=== PATIENT | female | born 1935 | race Hispanic/Latino ===

== ENCOUNTER 2018-06-06 11:40 | Outpatient (CLI) | payer BC, MEDICARE | END 2018-06-06 11:41 | disposition home or self-care (01) | LOC: OPLAB 11:40 ==

== ENCOUNTER 2018-08-01 13:51 | Inpatient (IN) | payer BC, MEDICARE ==
[2018-08-01 14:52] VITALS: BMI 30.4
[2018-08-01] MEDS ORDERED: Dexamethasone 20 mg / 5 ml Inj IVP STA (15:05)
[2018-08-01] MEDS ORDERED: PREMIXED IV ONE ×2 (15:06→15:30)
[2018-08-01] MEDS ORDERED: IMMUNE GLOBULIN IV ONE ×2 (15:06→15:30)
--- NOTE | 2018-08-01 15:18 | RAD ---
Date of service: 08/01/2018 HISTORY: admission COMPARISON: 10/17/2014 TECHNIQUE: 1 view obtained. FINDINGS: LUNGS: No active pulmonary disease. PLEURA: No significant pleural effusion identified, no pneumothorax apparent. CARDIOVASCULAR: No aortic atherosclerotic calcification present. Normal cardiac size. No pulmonary vascular congestion. OSSEOUS STRUCTURES: No significant abnormalities. VISUALIZED UPPER ABDOMEN: Normal. OTHER FINDINGS: None. IMPRESSION: No active disease.
[2018-08-01 15:57] LABS: BASO # 0.01 K/mm3 (0.0-2.0); BASO % 0.2 % (0.0-3.0); EOS # 0.1 (0.0-0.7); EOS % 1.6 % (1.5-5.0); HEMOGLOBIN 13.7 g/dL (12.0-16.0); LYMPH # 0.6 (1.2-3.4); LYMPH % 11.2 % (22.0-35.0); MEAN CELL VOLUME 94.3 fl (80.0-105.0); MEAN CORPUSCULAR HEMOGLOBIN 31.1 pg (25.0-35.0); MONO # 0.6 (0.1-0.6); RED CELL DISTRIBUTION WIDTH 12.7 % (11.5-14.5); WHITE BLOOD COUNT 5.1 10^3/uL (4.5-11.0)
--- NOTE | 2018-08-01 15:59 | ED PDOC ---
Arrival/HPI - General Chief Complaint: Abnormal Labs Time Seen by Provider: 08/01/18 13:55 Historian: Patient - History of Present Illness Narrative History of Present Illness (Text): 08/01/18 13:55 Patient is an 83 year old female, with a past medical history of ITP, who presents to the emergency department complaining of ITP flare up. Patient also notes petechiae to lower extremities and ecchymosis to forearms bilaterally a fter knocking body into a doorknob. Patient denies gingival bleeding at this time. Patient appreciates blood work done in Dr. Pedraza's office this week; shows platelet count of 4 (pt's baseline 180-200). Patient takes prednisone for current symptoms and denies taking any other medications. Patient denies fevers, chills, headache, dizziness, chest pain, shortness of breath, cough, abdominal pain, nausea, vomiting, diarrhea, dysuria, hematuria, back pain, neck pain, arthralgias, or any other complaints. Symptom Onset: Gradual Symptom Course: Unchanged Activities at Onset: Light Context: Home Past Medical History - Provider Review Nursing Documentation Reviewed: Yes - Infectious Disease Hx of Infectious Diseases: None - Cardiac Hx Cardiac Disorders: No - Pulmonary Hx Respiratory Disorders: Yes (lung nodules) - Neurological Hx Neurological Disorder: Yes Other/Comment: subarachnoid bleed 2011, itp - HEENT Hx HEENT Disorder: Yes Hx Cataracts: Yes (b/l sx) Other/Comment: hearing impairment uses hearing aids which are home at present time - Renal Hx Renal Disorder: No - Endocrine/Metabolic Hx Endocrine Disorders: No - Hematological/Oncological Hx Blood Disorders: Yes Hx Anemia: Yes (2001) Other/Comment: 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 - Integumentary Hx Dermatological Disorder: No Other/Comment: bruising - Musculoskeletal/Rheumatological Hx Musculoskeletal Disorders: No Hx Falls: No - Gastrointestinal Hx Gastrointestinal Disorders: Yes (gastritis) - Genitourinary/Gynecological Hx Genitourinary Disorders: Yes Other/Comment: renal insufficiency 2001 - Psychiatric Hx Psychophysiologic Disorder: No Hx Substance Use: No - Suicidal Assessment Feels Threatened In Home Enviroment: No Family/Social History - Physician Review Nursing Documentation Reviewed: Yes Family/Social History: Unknown Family HX Smoking Status: Never Smoked Hx Alcohol Use: No Hx Substance Use: No Allergies/Home Meds Allergies/Adverse Reactions: Allergies meloxicam [From Mobic] Allergy (Verified 08/01/18 14:41) FATIGUE NSAIDS (Non-Steroidal Anti-Inflamma Allergy (Verified 08/01/18 14:41) RASH phenytoin [From Dilantin] Allergy (Verified 08/01/18 14:41) FATIGUE antibiotics Allergy (Uncoded 08/01/18 14:41) FATIGUE tripletal Allergy (Uncoded 08/01/18 14:41) FATIGUE Home Medications: Home Meds Medication Instructions Recorded Confirmed No Known Home Med 10/17/14 10/17/14 Review of Systems - Physician Review All systems were reviewed & negative as marked: Yes - Review of Systems Constitutional: absent: Fevers, Other ENT: absent: Other (gingival bleeding) Respiratory: absent: SOB, Cough Cardiovascular: absent: Chest Pain Gastrointestinal: absent: Abdominal Pain, Diarrhea, Nausea, Vomiting Genitourinary Female: absent: Dysuria, Hematuria Musculoskeletal: absent: Arthralgias, Back Pain, Neck Pain Neurological: absent: Headache, Dizziness Hemo/Lymphatic: Other (ITP flare-up) Physical Exam Vital Signs Reviewed: Yes Vital Signs Temp Pulse Resp BP Pulse Ox 08/01/18 14:36 97.6 F 63 18 147/99 H 97 Temperature: Afebrile Blood Pressure: Normal Pulse: Regular Respiratory Rate: Normal Appearance: Positive for: Well-Appearing, Non-Toxic, Comfortable Pain Distress: None Mental Status: Positive for: Alert and Oriented X 3 - Systems Exam Head: Present: Atraumatic, Normocephalic Pupils: Present: PERRL Extroacular Muscles: Present: EOMI Conjunctiva: Present: Normal Mouth: Present: Moist Mucous Membranes. No: Other (bleeding to gums) Neck: Present: Normal Range of Motion Respiratory/Chest: Present: Clear to Auscultation, Good Air Exchange. No: Respiratory Distress, Accessory Muscle Use, Wheezes, Rales, Rhonchi Cardiovascular: Present: Regular Rate and Rhythm, Normal S1, S2. No: Murmurs, Rub, Gallop Abdomen: Present: Normal Bowel Sounds. No: Tenderness, Distention, Peritoneal Signs, Rebound, Guarding Back: Present: Normal Inspection Upper Extremity: Present: Other (dark ecchyosis to upper extremities bilatera lly). No: Cyanosis, Edema Lower Extremity: Present: Other (pinpoint petechiae dots to bilateral lower extremities). No: Edema Neurological: Present: GCS=15, CN II-XII Intact, Speech Normal Skin: Present: Warm, Dry, Normal Color. No: Rashes Psychiatric: Present: Alert, Oriented x 3, Normal Insight, Normal Concentration Medical Decision Making ED Course and Treatment: 08/01/18 13:55 Impression: Patient is an 83 year old female, with a past medical history of ITP, who presents to the emergency department complaining of ITP flare-up. Plan: -- Labs -- Chest X-Ray -- Decadron -- Octagram 10% -- Urinalysis -- Reassess and disposition Prior Visits: Notes and results from previous visits were reviewed. Patient was last seen in the emergency department on Progress Notes: 08/01/18 16:[address] Pedraza, who requests patient admission to his service. Also requests IVIG 1g / kg Q12 and 40 mg daily of dexamethasone - RAD Interpretation Narrative RAD Interpretations (Text): 08/01/18 15:15 Chest X-Ray shows: IMPRESSION: No active disease. Radiology Orders: 08/01/18 14:53 CHEST PORTABLE [RAD] Stat Traffic Survey Technician: Radiologist - Medication Orders Current Medication Orders: Immune Globulin 70 gm/ (Miscellaneous) 700 mls @ 42 mls/hr IV ONCE ONE Stop: 08/02/18 08:09 Discontinued Medications Dexamethasone (Decadron Inj) 40 mg IVP STAT STA Stop: 08/01/18 15:06 - Scribe Statement The provider has reviewed the documentation as recorded by the Scribe Endy Linda All medical record entries made by the Scribe were at my direction and personally dictated by me. I have reviewed the chart and agree that the record accurately reflects my personal performance of the history, physical exam, medical decision making, and the department course for this patient. I have also personally directed, reviewed, and agree with the discharge instructions and disposition. Disposition/Present on Arrival - Present on Arrival History of DVT/PE: No History of Uncontrolled Diabetes: No Urinary Catheter: No History of Decub. Ulcer: No History Surgical Site Infection Following: None - Disposition
[2018-08-01 16:09] LABS: PLATELET COUNT 3 10^3/uL (120.0-450.0); PLATELET ESTIMATE LOW (NORMAL)
[2018-08-01] MEDS ORDERED: Dexamethasone 40 MG in Sodium Chloride 0.9% 50 ML IV ONE (16:15)
[2018-08-01 17:31] LABS: ALB/GLOB RATIO 1.7 (1.1-1.8); ALBUMIN 3.8 g/dL (3.0-4.8); CALCIUM 9.5 mg/dL (8.4-10.5); INR 0.99; PARTIAL THROMBOPLASTIN TIME 25.6 Seconds (26.9-38.3)
[2018-08-01 17:41] LABS: URINE BILIRUBIN NEGATIVE (NEGATIVE); URINE BLOOD MODERATE (NEGATIVE); URINE GLUCOSE (UA) NEGATIVE (NEGATIVE); URINE LEUKOCYTE ESTERASE SMALL Leu/uL (NEGATIVE); URINE PROTEIN NEGATIVE mg/dL (<30 mg/dL); URINE UROBILINOGEN 0.2 E.U./dL (<1 E.U./dL)
[2018-08-01 17:52] LABS: URINE APPEARANCE CLEAR (CLEAR); URINE COLOR LIGHT YELLOW (YELLOW); URINE EPITHELIAL CELLS 0 - 2 /hpf (0-5); URINE RBC 0 - 2 /hpf (0-2)
[2018-08-01 17:53] LABS: URINE BACTERIA TRACE /hpf
[2018-08-02] MEDS ORDERED: Dexamethasone 40 MG in Sodium Chloride 0.9% 50 ML IV ONE ×2 (12:00→12:15)
[2018-08-02] MEDS ORDERED: Dexamethasone 20 mg / 5 ml Inj IVP ONE ×2 (12:00)
[2018-08-02 13:33] LABS: HEMOGLOBIN 13.2 g/dL (12.0-16.0); LYMPH # 0.5 (1.2-3.4); MEAN CELL VOLUME 93.1 fl (80.0-105.0); MEAN CORPUSCULAR HEMOGLOBIN 31.6 pg (25.0-35.0); MEAN CORPUSCULAR HGB CONC 33.9 g/dl (31.0-37.0); MEAN PLATELET VOLUME 13.1 fl (7.0-11.0); MONO # 0.2 (0.1-0.6); MONO % 2.4 % (1.0-6.0); RBC 4.18 10^6/uL (3.5-6.1); RED CELL DISTRIBUTION WIDTH 12.5 % (11.5-14.5)
[2018-08-02 13:52] LABS: PLATELET COUNT 11 10^3/uL (120.0-450.0); PLATELET COUNT MANUAL 23 K/mm3 (120-450)
[2018-08-02 13:55] LABS: LYMPHOCYTE 4 % (22.0-35.0); MONOCYTE 6 % (1.0-6.0); NEUTROPHIL 90 % (50.0-70.0); PLATELET ESTIMATE LOW (NORMAL)
[2018-08-02] MEDS: Sucralfate 1 gm/10 ml Oral Susp UD PO SCH (15:09)
[2018-08-02] MEDS ORDERED: PREMIXED IV ONE (17:45)
[2018-08-02] MEDS ORDERED: IMMUNE GLOBULIN IV ONE (17:45)
--- NOTE | 2018-08-02 23:41 | CP.PCM.HP ---
Past Patient History - Infectious Disease Hx of Infectious Diseases: None - Past Social History Smoking Status: Never Smoked - CARDIAC Hx Cardiac Disorders: No - PULMONARY Hx Respiratory Disorders: Yes (lung nodules) - NEUROLOGICAL Hx Neurological Disorder: Yes Other/Comment: subarachnoid bleed 2011, itp - HEENT Hx HEENT Problems: Yes Hx Cataracts: Yes (b/l sx) Other/Comment: hearing impairment uses hearing aids which are home at present time wears glasses - RENAL Hx Chronic Kidney Disease: No - ENDOCRINE/METABOLIC Hx Endocrine Disorders: No - HEMATOLOGICAL/ONCOLOGICAL Hx Blood Disorders: Yes (ITP) Hx Anemia: Yes (2001) Other/Comment: 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 - INTEGUMENTARY Hx Dermatological Problems: No Other/Comment: bruising - MUSCULOSKELETAL/RHEUMATOLOGICAL Hx Musculoskeletal Disorders: No (arthritis bl knee) Hx Falls: No - GASTROINTESTINAL Hx Gastrointestinal Disorders: Yes (gastritis) - GENITOURINARY/GYNECOLOGICAL Hx Genitourinary Disorders: Yes Other/Comment: renal insufficiency 2001 - PSYCHIATRIC Hx Psychophysiologic Disorder: No Hx Substance Use: No - SURGICAL HISTORY Hx Surgeries: Yes (benign polyps) Meds Allergies/Adverse Reactions: Allergies Allergy/AdvReac Type Severity Reaction Status Date / Time meloxicam [From Mobic] Allergy FATIGUE Verified 08/01/18 14:41 NSAIDS (Non-Steroidal Allergy RASH Verified 08/01/18 14:41 Anti-Inflamma phenytoin [From Dilantin] Allergy FATIGUE Verified 08/01/18 14:41 antibiotics Allergy FATIGUE Uncoded 08/01/18 14:41 tripletal Allergy FATIGUE Uncoded 08/01/18 14:41 Results - Vital Signs Recent Vital Signs: Last Vital Signs Temp 97.9 F 08/02/18 16:43 Pulse 66 08/02/18 16:43 Resp 20 08/02/18 16:43 BP 122/76 08/02/18 16:43 Pulse Ox 95 08/02/18 16:43 - Labs Result Diagrams: 08/02/18 13:20 08/01/18 17:18 Labs: Laboratory Results - last 24 hr 08/02/18 13:20 WBC 9.0 D RBC 4.18 Hgb 13.2 Hct 38.9 MCV 93.1 MCH 31.6 MCHC 33.9 RDW 12.5 Plt Count 11 L* Manual Plt Count 23 L* MPV 13.1 H Neut % (Auto) 91.6 H Lymph % (Auto) 6.0 L [place] % (Auto) 2.4 Eos % (Auto) 0.0 L Baso % (Auto) 0.0 Lymph # (Auto) 0.5 L [place] # (Auto) 0.2 Eos # (Auto) 0.0 Baso # (Auto) 0.00 Absolute Neuts (auto) 8.26 H Neutrophils % (Manual) 90 H Lymphocytes % (Manual) 4 L Monocytes % (Manual) 6 Platelet Evaluation Low
--- NOTE | 2018-08-03 00:09 | CP.PCM.CON ---
<SantiRemy - Last Filed: 08/03/18 00:12> History of Present Illness - History of Present Illness History of Present Illness: Heme consult: Santi PGY - 2 Reason for consult: ITP Consult requested by: Dr. Foote 83 F with 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 Sutton's office with palatal petechiae and peripheral bruising; her platelets in the office were found to be 4. Patient was referred to ED for further eval and treatment. On interview, patient denies any complaints. Review of systems: 12 point ros obtained and negative except as per HPI Surgical Hx: Denies Medical Hx: ITP, SAH, Cataracts, Hearing impairments Allergies: Meloxicam, NSAIDs, Phenytoin Social Hx: Denies EtOH, Illicits, Tobacco Home Meds: Reviewed, as per MAR Family Hx: Non-contributory Past Patient History - Infectious Disease Hx of Infectious Diseases: None - Past Social History Smoking Status: Never Smoked - CARDIAC Hx Cardiac Disorders: No - PULMONARY Hx Respiratory Disorders: Yes (lung nodules) - NEUROLOGICAL Hx Neurological Disorder: Yes Other/Comment: subarachnoid bleed 2011, itp - HEENT Hx HEENT Problems: Yes Hx Cataracts: Yes (b/l sx) Other/Comment: hearing impairment uses hearing aids which are home at present time wears glasses - RENAL Hx Chronic Kidney Disease: No - ENDOCRINE/METABOLIC Hx Endocrine Disorders: No - HEMATOLOGICAL/ONCOLOGICAL Hx Blood Disorders: Yes (ITP) Hx Anemia: Yes (2001) Other/Comment: 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 - INTEGUMENTARY Hx Dermatological Problems: No Other/Comment: bruising - MUSCULOSKELETAL/RHEUMATOLOGICAL Hx Musculoskeletal Disorders: No (arthritis bl knee) Hx Falls: No - GASTROINTESTINAL Hx Gastrointestinal Disorders: Yes (gastritis) - GENITOURINARY/GYNECOLOGICAL Hx Genitourinary Disorders: Yes Other/Comment: renal insufficiency 2001 - PSYCHIATRIC Hx Psychophysiologic Disorder: No Hx Substance Use: No - SURGICAL HISTORY Hx Surgeries: Yes (benign polyps) Meds Allergies/Adverse Reactions: Allergies Allergy/AdvReac Type Severity Reaction Status Date / Time meloxicam [From Mobic] Allergy FATIGUE Verified 08/01/18 14:41 NSAIDS (Non-Steroidal Allergy RASH Verified 08/01/18 14:41 Anti-Inflamma phenytoin [From Dilantin] Allergy FATIGUE Verified 08/01/18 14:41 antibiotics Allergy FATIGUE Uncoded 08/01/18 14:41 tripletal Allergy FATIGUE Uncoded 08/01/18 14:41 - Medications Medications: Current Medications Dexamethasone 40 mg/ Sodium (Chloride) 60 mls @ 240 mls/hr IV DAILY [facility] Stop: 08/04/18 10:14 Immune Globulin 70 gm/ (Miscellaneous) 700 mls @ 42 mls/hr IV ONCE ONE Stop: 08/03/18 10:24 Last Admin: 08/02/18 17:45 Dose: 42 mls/hr Sucralfate (Carafate Oral Susp) 1 gm PO 0600,1600 [facility] Last Admin: 08/02/18 15:09 Dose: 1 gm Physical Exam - Constitutional Appears: Well - Head Exam Head Exam: ATRAUMATIC, NORMAL INSPECTION, NORMOCEPHALIC - Eye Exam Eye Exam: EOMI, Normal appearance, PERRL Pupil Exam: NORMAL ACCOMODATION, PERRL - ENT Exam ENT Exam: Mucous Membranes Moist, Normal Exam - Neck Exam Neck exam: Positive for: Normal Inspection - Respiratory Exam Respiratory Exam: Clear to Auscultation Bilateral, NORMAL BREATHING PATTERN - Cardiovascular Exam Cardiovascular Exam: REGULAR RHYTHM - GI/Abdominal Exam GI & Abdominal Exam: Normal Bowel Sounds, Soft. absent: Tenderness - Extremities Exam Extremities exam: Positive for: normal inspection - Back Exam Back exam: NORMAL INSPECTION - Neurological Exam Neurological exam: Alert, CN II-XII Intact, Normal Gait, Oriented x3, Reflexes Normal - Psychiatric Exam Psychiatric exam: Normal Affect, Normal Mood - Skin Skin Exam: Dry, Intact, Normal Color, Petechiae, Rash, Warm Results - Vital Signs Recent Vital Signs: Last Vital Signs Temp 97.9 F 08/02/18 16:43 Pulse 66 08/02/18 16:43 Resp 20 08/02/18 16:43 BP 122/76 08/02/18 16:43 Pulse Ox 95 08/02/18 16:43 - Labs Result Diagrams: 08/02/18 13:20 08/01/18 17:18 Labs: Laboratory Results - last 24 hr 08/02/18 13:20 WBC 9.0 D RBC 4.18 Hgb 13.2 Hct 38.9 MCV 93.1 MCH 31.6 MCHC 33.9 RDW 12.5 Plt Count 11 L* Manual Plt Count 23 L* MPV 13.1 H Neut % (Auto) 91.6 H Lymph % (Auto) 6.0 L [place] % (Auto) 2.4 Eos % (Auto) 0.0 L Baso % (Auto) 0.0 Lymph # (Auto) 0.5 L [place] # (Auto) 0.2 Eos # (Auto) 0.0 Baso # (Auto) 0.00 Absolute Neuts (auto) 8.26 H Neutrophils % (Manual) 90 H Lymphocytes % (Manual) 4 L Monocytes % (Manual) 6 Platelet Evaluation Low Assessment & Plan - Assessment and Plan (Free Text) Assessment: 83 F presents with ITP flare up; platelets of 4 (baseline 180-200). Plan - Dexamethasone 40 mg X 4 doses (daily) - IVIG 1 mg/kg (70) BID X 2 doses - Platelet pheresis with benadryl Thank you for this interesting consult; we will follow with you <Elías Sutton - Last Filed: 08/03/18 16:05> Meds - Medications Medications: Current Medications Dexamethasone 40 mg/ Sodium (Chloride) 60 mls @ 240 mls/hr IV DAILY [facility] Stop: 08/04/18 10:14 Last Admin: 08/03/18 15:04 Dose: 240 mls/hr Sucralfate (Carafate Oral Susp) 1 gm PO 0600,1600 [facility] Last Admin: 08/03/18 05:24 Dose: 1 gm Results - Vital Signs Recent Vital Signs: Last Vital Signs Temp 97.7 F 08/03/18 06:00 Pulse 66 08/03/18 06:00 Resp 20 08/03/18 06:00 BP 146/77 08/03/18 06:00 Pulse Ox 95 08/02/18 16:43 - Labs Result Diagrams: 08/03/18 12:10 08/01/18 17:18 Labs: Laboratory Results - last 24 hr 08/03/18 12:10 WBC 9.2 RBC 3.71 Hgb 11.6 L Hct 34.7 L MCV 93.5 MCH 31.3 MCHC 33.4 RDW 12.8 Plt Count 89 L Manual Plt Count 110 L MPV 10.7 Neut % (Auto) 86.1 H Lymph % (Auto) 5.2 L [place] % (Auto) 8.7 H Eos % (Auto) 0.0 L Baso % (Auto) 0.0 Lymph # (Auto) 0.5 L [place] # (Auto) 0.8 H Eos # (Auto) 0.0 Baso # (Auto) 0.00 Absolute Neuts (auto) 7.92 H Attending/Attestation - Attestation I have personally seen and examined this patient.: Yes I have fully participated in the care of the patient.: Yes I have reviewed all pertinent clinical information: Yes
[2018-08-03] MEDS: Sucralfate 1 gm/10 ml Oral Susp UD PO SCH ×2 (05:24→17:31)
[2018-08-03] MEDS ORDERED: Dexamethasone 20 mg / 5 ml Inj IVP SCH (10:00)
[2018-08-03 12:24] LABS: HEMOGLOBIN 11.6 g/dL (12.0-16.0); LYMPH # 0.5 (1.2-3.4); LYMPH % 5.2 % (22.0-35.0); MEAN CELL VOLUME 93.5 fl (80.0-105.0); MEAN CORPUSCULAR HEMOGLOBIN 31.3 pg (25.0-35.0); MEAN CORPUSCULAR HGB CONC 33.4 g/dl (31.0-37.0); MEAN PLATELET VOLUME 10.7 fl (7.0-11.0); MONO # 0.8 (0.1-0.6); MONO % 8.7 % (1.0-6.0); RBC 3.71 10^6/uL (3.5-6.1); RED CELL DISTRIBUTION WIDTH 12.8 % (11.5-14.5); WHITE BLOOD COUNT 9.2 10^3/uL (4.5-11.0)
--- NOTE | 2018-08-03 14:46 | CP.PCM.CON ---
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 Patient states that she visited Dr. Awan office and she was noted to have Pletal petechia and peripheral bruising. At this time her platelets was found to be 4. She was then referred to go to the emergency department. At this time she denies any complaints. She denies any cough, fever, chills. She denies any abdominal pain, nausea, vomiting, or urinary symptoms. Infectious disease was consulted for possible UTI and to rule out infection. 12 point ROS performed negative other than stated above PMH: As above PSH: Denies Medication: Refer to MAR Allergies: Meloxicam, NSAIDs, phenytoin SH: Denies any smoking, drinking, or drugs Review of Systems - Review of Systems All systems: reviewed and no additional remarkable complaints except Past Patient History - Infectious Disease Hx of Infectious Diseases: None - Past Social History Smoking Status: Never Smoked - CARDIAC Hx Cardiac Disorders: No - PULMONARY Hx Respiratory Disorders: Yes (lung nodules) - NEUROLOGICAL Hx Neurological Disorder: Yes Other/Comment: subarachnoid bleed 2011, itp - HEENT Hx HEENT Problems: Yes Hx Cataracts: Yes (b/l sx) Other/Comment: hearing impairment uses hearing aids which are home at present time wears glasses - RENAL Hx Chronic Kidney Disease: No - ENDOCRINE/METABOLIC Hx Endocrine Disorders: No - HEMATOLOGICAL/ONCOLOGICAL Hx Blood Disorders: Yes (ITP) Hx Anemia: Yes (2001) Other/Comment: 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 - INTEGUMENTARY Hx Dermatological Problems: No Other/Comment: bruising - MUSCULOSKELETAL/RHEUMATOLOGICAL Hx Musculoskeletal Disorders: No (arthritis bl knee) Hx Falls: No - GASTROINTESTINAL Hx Gastrointestinal Disorders: Yes (gastritis) - GENITOURINARY/GYNECOLOGICAL Hx Genitourinary Disorders: Yes Other/Comment: renal insufficiency 2001 - PSYCHIATRIC Hx Psychophysiologic Disorder: No Hx Substance Use: No - SURGICAL HISTORY Hx Surgeries: Yes (benign polyps) Meds Allergies/Adverse Reactions: Allergies Allergy/AdvReac Type Severity Reaction Status Date / Time diphenhydramine Allergy RASH Verified 08/03/18 20:16 [From Benadryl Allergy] meloxicam [From Mobic] Allergy FATIGUE Verified 08/01/18 14:41 mupirocin [From Bactroban] Allergy RASH Verified 08/03/18 20:16 NSAIDS (Non-Steroidal Allergy RASH Verified 08/01/18 14:41 Anti-Inflamma phenytoin [From Dilantin] Allergy FATIGUE Verified 08/01/18 14:41 tripletal Allergy FATIGUE Uncoded 08/01/18 14:41 - Medications Medications: Current Medications Dexamethasone 40 mg/ Sodium (Chloride) 60 mls @ 240 mls/hr IV DAILY [facility] Stop: 08/04/18 10:14 Sucralfate (Carafate Oral Susp) 1 gm PO 0600,1600 [facility] Last Admin: 08/03/18 05:24 Dose: 1 gm Physical Exam - Constitutional Appears: No Acute Distress - Head Exam Head Exam: ATRAUMATIC, NORMOCEPHALIC - Eye Exam Eye Exam: EOMI, PERRL - ENT Exam ENT Exam: Mucous Membranes Moist - Respiratory Exam Respiratory Exam: Clear to Auscultation Bilateral. absent: Rales, Wheezes - Cardiovascular Exam Cardiovascular Exam: REGULAR RHYTHM, RRR, +S1, +S2 - GI/Abdominal Exam GI & Abdominal Exam: Normal Bowel Sounds, Soft. absent: Tenderness - Extremities Exam Extremities exam: Negative for: calf tenderness, pedal edema - Neurological Exam Neurological exam: Alert, Oriented x3 - Psychiatric Exam Psychiatric exam: Normal Mood - Skin Skin Exam: Dry, Warm Results - Vital Signs Recent Vital Signs: Last Vital Signs Temp 97.7 F 08/03/18 06:00 Pulse 66 08/03/18 06:00 Resp 20 08/03/18 06:00 BP 146/77 08/03/18 06:00 Pulse Ox 95 08/02/18 16:43 - Labs Result Diagrams: 08/03/18 12:10 08/01/18 17:18 Labs: Laboratory Results - last 24 hr 08/03/18 12:10 WBC 9.2 RBC 3.71 Hgb 11.6 L Hct 34.7 L MCV 93.5 MCH 31.3 MCHC 33.4 RDW 12.8 Plt Count 89 L Manual Plt Count 110 L MPV 10.7 Neut % (Auto) 86.1 H Lymph % (Auto) 5.2 L [place] % (Auto) 8.7 H Eos % (Auto) 0.0 L Baso % (Auto) 0.0 Lymph # (Auto) 0.5 L [place] # (Auto) 0.8 H Eos # (Auto) 0.0 Baso # (Auto) 0.00 Absolute Neuts (auto) 7.92 H Assessment & Plan - Assessment and Plan (Free Text) Assessment: 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 Denies any cough, fever, chills, abdominal pain, or urinary symptoms. Chest x-ray was negative Urinalysis was negative Follow-up hematology consult and recommendations- Patient received IV gammaglobulin and currently on steroids Continue to monitor for any changes Case and plan to be reviewed and discussed with Dr. Saul <Juve Saul - Last Filed: 08/03/18 21:56> Meds - Medications Medications: Current Medications Dexamethasone 40 mg/ Sodium (Chloride) 60 mls @ 240 mls/hr IV DAILY [facility] Stop: 08/04/18 10:14 Last Admin: 08/03/18 15:04 Dose: 240 mls/hr Sucralfate (Carafate Oral Susp) 1 gm PO 0600,1600 [facility] Last Admin: 08/03/18 17:31 Dose: 1 gm Results - Vital Signs Recent Vital Signs: Last Vital Signs Temp 97.3 F L 08/03/18 16:18 Pulse 63 08/03/18 16:18 Resp 20 08/03/18 16:18 BP 123/76 08/03/18 16:18 Pulse Ox 97 08/03/18 16:18 - Labs Result Diagrams: 08/03/18 12:10 08/01/18 17:18 Labs: Laboratory Results - last 24 hr 08/03/18 08/03/18 12:10 17:13 WBC 9.2 RBC 3.71 Hgb 11.6 L Hct 34.7 L MCV 93.5 MCH 31.3 MCHC 33.4 RDW 12.8 Plt Count 89 L Manual Plt Count 110 L MPV 10.7 Neut % (Auto) 86.1 H Lymph % (Auto) 5.2 L [place] % (Auto) 8.7 H Eos % (Auto) 0.0 L Baso % (Auto) 0.0 Lymph # (Auto) 0.5 L [place] # (Auto) 0.8 H Eos # (Auto) 0.0 Baso # (Auto) 0.00 Absolute Neuts (auto) 7.92 H Procalcitonin < 0.05 L Attending/Attestation - Attestation I have personally seen and examined this patient.: Yes I have fully participated in the care of the patient.: Yes I have reviewed all pertinent clinical information: Yes
[2018-08-03] MEDS: Dexamethasone 40 MG in Sodium Chloride 0.9% 50 ML IV SCH (15:04)
[2018-08-04] MEDS: Sucralfate 1 gm/10 ml Oral Susp UD PO SCH ×2 (06:10→17:08)
--- NOTE | 2018-08-04 08:14 | CP.PCM.PN ---
<Kobe Lino - Last Filed: 08/04/18 14:02> Subjective - Date & Time of Evaluation Date of Evaluation: 08/04/18 Time of Evaluation: 10:35 - Subjective Subjective: Infectious dx progress note: Pt seen and examined at bedside. No acute events overnight. Pt denies any complaints. No fevers. 12 Point ROS performed and neg other than stated above Objective - Vital Signs/Intake and Output Vital Signs (last 24 hours): Temp Pulse Resp BP Pulse Ox 97.3 F L 63 20 123/76 97 08/03/18 16:18 08/03/18 16:18 08/03/18 16:18 08/03/18 16:18 08/03/18 16:18 Intake and Output: 08/04/18 08/04/18 06:59 18:59 Intake Total 540 Balance 540 - Medications Medications: Current Medications Dexamethasone 40 mg/ Sodium (Chloride) 60 mls @ 240 mls/hr IV DAILY FREEMAN Stop: 08/04/18 10:14 Last Admin: 08/03/18 15:04 Dose: 240 mls/hr Sucralfate (Carafate Oral Susp) 1 gm PO 0600,1600 FREEMAN Last Admin: 08/04/18 06:10 Dose: 1 gm - Labs Labs: 08/03/18 12:10 08/01/18 17:18 PT 11.0 SECONDS (9.4-12.5) 08/01/18 17:18 INR 0.99 08/01/18 17:18 APTT 25.6 Seconds (26.9-38.3) L 08/01/18 17:18 - Constitutional Appears: No Acute Distress - ENT Exam ENT Exam: Mucous Membranes Moist - Respiratory Exam Respiratory Exam: Clear to Ausculation Bilateral. absent: Rales, Wheezes - Cardiovascular Exam Cardiovascular Exam: REGULAR RHYTHM, +S1, +S2 - GI/Abdominal Exam GI & Abdominal Exam: Soft. 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 Saul <Juve Saul - Last Filed: 08/04/18 22:03> Objective - Vital Signs/Intake and Output Vital Signs (last 24 hours): Temp Pulse Resp BP Pulse Ox 97.9 F 55 L 96 H 124/75 19 L 08/04/18 17:06 08/04/18 17:06 08/04/18 17:06 08/04/18 17:06 08/04/18 17:06 - Medications Medications: Current Medications Sucralfate (Carafate Oral Susp) 1 gm PO 0600,1600 FREEMAN Last Admin: 08/04/18 17:08 Dose: 1 gm - Labs Labs: 08/04/18 10:10 08/04/18 10:10 PT 11.0 SECONDS (9.4-12.5) 08/01/18 17:18 INR 0.99 08/01/18 17:18 APTT 25.6 Seconds (26.9-38.3) L 08/01/18 17:18 Attending/Attestation - Attestation I have personally seen and examined this patient.: Yes I have fully participated in the care of the patient.: Yes I have reviewed all pertinent clinical information, including history, physical exam and plan: Yes
--- NOTE | 2018-08-04 08:40 | CP.PCM.PN ---
Subjective - Date & Time of Evaluation Date of Evaluation: 08/02/18 Time of Evaluation: 08:38 - Subjective Subjective: Heme progress note - Santi PGY - 2 Patient seen and examined at bedside with no acute overnight events. Patient is doing well, petechiae are resolving; denies any focal neurological complaints and denies fatigue or weakness. Objective - Vital Signs/Intake and Output Vital Signs (last 24 hours): Temp Pulse Resp BP Pulse Ox 97.3 F L 63 20 123/76 97 08/03/18 16:18 08/03/18 16:18 08/03/18 16:18 08/03/18 16:18 08/03/18 16:18 Intake and Output: 08/04/18 08/04/18 06:59 18:59 Intake Total 540 Balance 540 - Medications Medications: Current Medications Dexamethasone 40 mg/ Sodium (Chloride) 60 mls @ 240 mls/hr IV DAILY FREEMAN Stop: 08/04/18 10:14 Last Admin: 08/03/18 15:04 Dose: 240 mls/hr Sucralfate (Carafate Oral Susp) 1 gm PO 0600,1600 FREEMAN Last Admin: 08/04/18 06:10 Dose: 1 gm - Labs Labs: 08/03/18 12:10 08/01/18 17:18 PT 11.0 SECONDS (9.4-12.5) 08/01/18 17:18 INR 0.99 08/01/18 17:18 APTT 25.6 Seconds (26.9-38.3) L 08/01/18 17:18 - Constitutional Appears: Well - Head Exam Head Exam: ATRAUMATIC, NORMAL INSPECTION, NORMOCEPHALIC - Eye Exam Eye Exam: EOMI, Normal appearance, PERRL Pupil Exam: NORMAL ACCOMODATION, PERRL - ENT Exam ENT Exam: Mucous Membranes Moist, Normal Exam - Neck Exam Neck Exam: Full ROM, Normal Inspection. absent: Lymphadenopathy - Respiratory Exam Respiratory Exam: Clear to Ausculation Bilateral, NORMAL BREATHING PATTERN - Cardiovascular Exam Cardiovascular Exam: REGULAR RHYTHM, +S1, +S2. absent: Murmur - GI/Abdominal Exam GI & Abdominal Exam: Soft, Normal Bowel Sounds. absent: Tenderness - Extremities Exam Extremities Exam: Full ROM, Normal Capillary Refill, Normal Inspection. absent: Joint Swelling, Pedal Edema - Back Exam Back Exam: NORMAL INSPECTION - Neurological Exam Neurological Exam: Alert, Awake, CN II-XII Intact, Normal Gait, Oriented x3 - Psychiatric Exam Psychiatric exam: Normal Affect, Normal Mood - Skin Skin Exam: Dry, Intact, Normal Color, Petechiae, Rash, Warm Assessment and Plan - Assessment and Plan (Free Text) Assessment: 83 F presents with ITP flare up; platelets of 4 (baseline 180-200). Plan - Dexamethasone 40 mg X 4 doses (daily) - 2 doses left - IVIG 1 mg/kg (70) BID X 2 doses - 1 dose left - Platelet pheresis with benadryl Thank you for this interesting consult; we will follow with you
--- NOTE | 2018-08-04 08:44 | CP.PCM.PN ---
<SantiRemy - Last Filed: 08/04/18 08:41> Subjective - Date & Time of Evaluation Date of Evaluation: 08/03/18 Time of Evaluation: 08:41 - Subjective Subjective: Heme/onc progress note - Santi PGy - 2 Patient seen and examined at bedside. Patient apparently became mildly confused overnight but it resolved and she was able to be re-directed. Patient denies any new complaints. Per extensive conversation with her daughter, patient is allergic to certain antibiotics, but she does not know which ones. We will try to get in touch with patient's pharmacy. Objective - Vital Signs/Intake and Output Vital Signs (last 24 hours): Temp Pulse Resp BP Pulse Ox 97.3 F L 63 20 123/76 97 08/03/18 16:18 08/03/18 16:18 08/03/18 16:18 08/03/18 16:18 08/03/18 16:18 Intake and Output: 08/04/18 08/04/18 06:59 18:59 Intake Total 540 Balance 540 - Medications Medications: Current Medications Dexamethasone 40 mg/ Sodium (Chloride) 60 mls @ 240 mls/hr IV DAILY FREEMAN Stop: 08/04/18 10:14 Last Admin: 08/03/18 15:04 Dose: 240 mls/hr Sucralfate (Carafate Oral Susp) 1 gm PO 0600,1600 FRE[facility]AN Last Admin: 08/04/18 06:10 Dose: 1 gm - Labs Labs: 08/03/18 12:10 08/01/18 17:18 PT 11.0 SECONDS (9.4-12.5) 08/01/18 17:18 INR 0.99 08/01/18 17:18 APTT 25.6 Seconds (26.9-38.3) L 08/01/18 17:18 - Constitutional Appears: Well - Head Exam Head Exam: ATRAUMATIC, NORMAL INSPECTION, NORMOCEPHALIC - Eye Exam Eye Exam: EOMI, Normal appearance, PERRL Pupil Exam: NORMAL ACCOMODATION, PERRL - ENT Exam ENT Exam: Mucous Membranes Moist, Normal Exam - Neck Exam Neck Exam: Full ROM, Normal Inspection. absent: Lymphadenopathy - Respiratory Exam Respiratory Exam: Clear to Ausculation Bilateral, NORMAL BREATHING PATTERN - Cardiovascular Exam Cardiovascular Exam: REGULAR RHYTHM, +S1, +S2. absent: Murmur - GI/Abdominal Exam GI & Abdominal Exam: Soft, Normal Bowel Sounds. absent: Tenderness - Extremities Exam Extremities Exam: Full ROM, Normal Capillary Refill, Normal Inspection. absent: Joint Swelling, Pedal Edema - Back Exam Back Exam: NORMAL INSPECTION - Neurological Exam Neurological Exam: Alert, Awake, CN II-XII Intact, Normal Gait, Oriented x3 - Psychiatric Exam Psychiatric exam: Normal Affect, Normal Mood - Skin Skin Exam: Dry, Intact, Normal Color, Warm Assessment and Plan - Assessment and Plan (Free Text) Assessment: 83 F presents with ITP flare up; platelets of 4 (baseline 180-200). Plan - Dexamethasone 40 mg X 4 doses (daily) - 1 dose left - IVIG 1 mg/kg (70) BID X 2 doses - Complete - Platelet pheresis with benadryl - UA showed possible infxn - will obtain U Cx and ID consult, as this could be underlying cause of ITP Given that patient is allergic to unknown ABx, ID consultation is prudent at this time. Thank you for this interesting consult; we will follow with you <Elías Sutton P - Last Filed: 08/04/18 21:16> Objective - Vital Signs/Intake and Output Vital Signs (last 24 hours): Temp Pulse Resp BP Pulse Ox 97.9 F 55 L 96 H 124/75 19 L 08/04/18 17:06 08/04/18 17:06 08/04/18 17:06 08/04/18 17:06 08/04/18 17:06 - Medications Medications: Current Medications Sucralfate (Carafate Oral Susp) 1 gm PO 0600,1600 FRE[facility]AN Last Admin: 08/04/18 17:08 Dose: 1 gm - Labs Labs: 08/04/18 10:10 08/04/18 10:10 PT 11.0 SECONDS (9.4-12.5) 08/01/18 17:18 INR 0.99 08/01/18 17:18 APTT 25.6 Seconds (26.9-38.3) L 08/01/18 17:18 Attending/Attestation - Attestation I have personally seen and examined this patient.: Yes I have fully participated in the care of the patient.: Yes I have reviewed all pertinent clinical information, including history, physical exam and plan: Yes
[2018-08-04] MEDS ORDERED: Dexamethasone 20 mg / 5 ml Inj ONE (09:08)
[2018-08-04] MEDS: Dexamethasone 40 MG in Sodium Chloride 0.9% 50 ML IV SCH (10:24)
[2018-08-04 10:28] LABS: HEMOGLOBIN 11.8 g/dL (12.0-16.0); LYMPH # 0.7 (1.2-3.4); LYMPH % 10.8 % (22.0-35.0); MEAN CELL VOLUME 94.2 fl (80.0-105.0); MEAN CORPUSCULAR HEMOGLOBIN 31.2 pg (25.0-35.0); MEAN CORPUSCULAR HGB CONC 33.1 g/dl (31.0-37.0); MEAN PLATELET VOLUME 10.2 fl (7.0-11.0); MONO # 0.2 (0.1-0.6); MONO % 2.4 % (1.0-6.0); RBC 3.78 10^6/uL (3.5-6.1); RED CELL DISTRIBUTION WIDTH 12.8 % (11.5-14.5); WHITE BLOOD COUNT 6.2 10^3/uL (4.5-11.0)
[2018-08-04 10:43] LABS: ALB/GLOB RATIO 0.8 (1.1-1.8); ALBUMIN 3.8 g/dL (3.0-4.8); CALCIUM 9.3 mg/dL (8.4-10.5)
[2018-08-05] MEDS: Sucralfate 1 gm/10 ml Oral Susp UD PO SCH (05:26)
--- NOTE | 2018-08-05 07:53 | CP.PCM.PN ---
<Kobe Lino - Last Filed: 08/05/18 15:27> Subjective - Date & Time of Evaluation Date of Evaluation: 08/05/18 Time of Evaluation: 10:40 - Subjective Subjective: Infectious dx progress note: Pt seen and examined at bedside. No acute events overnight. No complaints. No fevers 12 Point ROS performed and neg other than stated above Objective - Vital Signs/Intake and Output Vital Signs (last 24 hours): Temp Pulse Resp BP Pulse Ox 97.9 F 55 L 96 H 124/75 19 L 08/04/18 17:06 08/04/18 17:06 08/04/18 17:06 08/04/18 17:06 08/04/18 17:06 Intake and Output: 08/05/18 08/05/18 06:59 18:59 Intake Total 240 Balance 240 - Medications Medications: Current Medications Sucralfate (Carafate Oral Susp) 1 gm PO 0600,1600 FRE[facility]AN Last Admin: 08/05/18 05:26 Dose: 1 gm - Labs Labs: 08/04/18 10:10 08/04/18 10:10 PT 11.0 SECONDS (9.4-12.5) 08/01/18 17:18 INR 0.99 08/01/18 17:18 APTT 25.6 Seconds (26.9-38.3) L 08/01/18 17:18 - Constitutional Appears: No Acute Distress - Head Exam Head Exam: ATRAUMATIC, NORMOCEPHALIC - Eye Exam Eye Exam: EOMI - Respiratory Exam Respiratory Exam: Clear to Ausculation Bilateral. absent: Rales, Wheezes - Cardiovascular Exam Cardiovascular Exam: REGULAR RHYTHM, +S1, +S2 - GI/Abdominal Exam GI & Abdominal Exam: Soft. 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 Saul <Juve Saul - Last Filed: 08/05/18 21:27> Objective - Vital Signs/Intake and Output Vital Signs (last 24 hours): Temp Pulse Resp BP Pulse Ox 98 F 63 20 154/80 H 96 08/05/18 08:18 08/05/18 08:18 08/05/18 08:18 08/05/18 08:18 08/05/18 08:18 - Labs Labs: 08/05/18 10:05 08/04/18 10:10 PT 11.0 SECONDS (9.4-12.5) 08/01/18 17:18 INR 0.99 08/01/18 17:18 APTT 25.6 Seconds (26.9-38.3) L 08/01/18 17:18 Attending/Attestation - Attestation I have personally seen and examined this patient.: Yes I have fully participated in the care of the patient.: Yes I have reviewed all pertinent clinical information, including history, physical exam and plan: Yes
[2018-08-05 08:18] VITALS: BP 154/80; PULSE 63; RESP 20; TEMP 98; O2SAT 96
--- NOTE | 2018-08-05 09:02 | CP.PCM.PN ---
<Remy Hancock - Last Filed: 08/05/18 08:58> Subjective - Date & Time of Evaluation Date of Evaluation: 08/04/18 Time of Evaluation: 08:58 - Subjective Subjective: Heme onc progress note Lianne PGY - 2 Patient seen and examined at [facility] with no acute overnight events; patient states she is feeling well and denies any fatigue. She states that her petechiae and bruises are healing. Denies any focal neurological deficits, any chest pain or shortness of breath. Objective - Vital Signs/Intake and Output Vital Signs (last 24 hours): Temp Pulse Resp BP Pulse Ox 98 F 63 20 154/80 H 96 08/05/18 08:18 08/05/18 08:18 08/05/18 08:18 08/05/18 08:18 08/05/18 08:18 Intake and Output: 08/05/18 08/05/18 06:59 18:59 Intake Total 240 Balance 240 - Medications Medications: Current Medications Sucralfate (Carafate Oral Susp) 1 gm PO 0600,1600 FREEMAN Last Admin: 08/05/18 05:26 Dose: 1 gm - Labs Labs: 08/04/18 10:10 08/04/18 10:10 PT 11.0 SECONDS (9.4-12.5) 08/01/18 17:18 INR 0.99 08/01/18 17:18 APTT 25.6 Seconds (26.9-38.3) L 08/01/18 17:18 - Constitutional Appears: Well - Head Exam Head Exam: ATRAUMATIC, NORMAL INSPECTION, NORMOCEPHALIC - Eye Exam Eye Exam: EOMI, Normal appearance, PERRL Pupil Exam: NORMAL ACCOMODATION, PERRL - ENT Exam ENT Exam: Mucous Membranes Moist, Normal Exam - Neck Exam Neck Exam: Full ROM, Normal Inspection. absent: Lymphadenopathy - Respiratory Exam Respiratory Exam: Clear to Ausculation Bilateral, NORMAL BREATHING PATTERN - Cardiovascular Exam Cardiovascular Exam: REGULAR RHYTHM, +S1, +S2. absent: Murmur - GI/Abdominal Exam GI & Abdominal Exam: Soft, Normal Bowel Sounds. absent: Tenderness - Extremities Exam Extremities Exam: Full ROM, Normal Capillary Refill, Normal Inspection. absent: Joint Swelling, Pedal Edema - Back Exam Back Exam: NORMAL INSPECTION - Neurological Exam Neurological Exam: Alert, Awake, CN II-XII Intact, Normal Gait, Oriented x3 - Psychiatric Exam Psychiatric exam: Normal Affect, Normal Mood - Skin Skin Exam: Dry, Intact, Normal Color, Warm - Additional Findings Additional findings: healing oral petechiae/ecchymoses; healing petechiae in bilateral UE and LE Assessment and Plan - Assessment and Plan (Free Text) Assessment: 83 F presents with ITP flare up; platelets of 4 (baseline 180-200) s/p 4 doses of Dexamethasone and 2 doses of IVIG, as well as 2 U of platelets. Blood Cx negative at this time, no new abx as per ID; cause of most recent flare still unknown Plan - Dexamethasone 40 mg X 4 doses (daily) - Complete - IVIG 1 mg/kg (70) BID X 2 doses - Complete - If patient's platelets are stable, may be able to go home on Wednesday Thank you for this interesting consult; we will follow with you <Elías Sutton P - Last Filed: 08/05/18 14:21> Objective - Vital Signs/Intake and Output Vital Signs (last 24 hours): Temp Pulse Resp BP Pulse Ox 98 F 63 20 154/80 H 96 08/05/18 08:18 08/05/18 08:18 08/05/18 08:18 08/05/18 08:18 08/05/18 08:18 Intake and Output: 08/05/18 08/05/18 06:59 18:59 Intake Total 240 Balance 240 - Labs Labs: 08/05/18 10:05 08/04/18 10:10 PT 11.0 SECONDS (9.4-12.5) 08/01/18 17:18 INR 0.99 08/01/18 17:18 APTT 25.6 Seconds (26.9-38.3) L 08/01/18 17:18 Attending/Attestation - Attestation I have personally seen and examined this patient.: Yes I have fully participated in the care of the patient.: Yes I have reviewed all pertinent clinical information, including history, physical exam and plan: Yes
[2018-08-05 10:19] LABS: HEMOGLOBIN 12.8 g/dL (12.0-16.0); MEAN CELL VOLUME 93.9 fl (80.0-105.0); MEAN CORPUSCULAR HEMOGLOBIN 31.4 pg (25.0-35.0); MEAN CORPUSCULAR HGB CONC 33.4 g/dl (31.0-37.0); MEAN PLATELET VOLUME 10.9 fl (7.0-11.0); MONO # 0.3 (0.1-0.6); MONO % 3.8 % (1.0-6.0); RBC 4.08 10^6/uL (3.5-6.1); RED CELL DISTRIBUTION WIDTH 12.7 % (11.5-14.5); WHITE BLOOD COUNT 7.6 10^3/uL (4.5-11.0)
--- NOTE | 2018-08-06 00:49 | DS ---
HISTORY OF PRESENT ILLNESS: The patient is an 83-year-old female admitted on 08/01/2018, for a severely low platelet count with increased bruisability. Platelet count in the hospital emergency room on admission was 3000. The patient was then pulsed with IV steroids with gamma globulin given with very good effect and now at the time of discharge, her platelet count is up to 132,000. The patient feels fine without complaint with her daughter at the bedside, anxious to discharge home. The patient's medications for discharge home will be Carafate liquid with prescription called in to [facility]. She will follow up with Dr. Sutton in the office after the weekend on Wednesday or Wednesday of next week. Should she need to contact us for earlier we will be on-call in the interim. Otherwise, the patient is without complaint for discharge home today. PHYSICAL EXAMINATION: VITAL SIGNS: Temperature 98, pulse 60, respirations 20, blood pressure 154/80, pulse oximetry 96%. HEENT: Unremarkable. NECK: Supple. HEART: Regular rate. LUNGS: Clear. ABDOMEN: Soft, nontender. EXTREMITIES: No edema. SKIN: Warm and dry with ecchymotic blotchy changes from her thrombocytopenic purpura changes, which are now slowly improving. LABORATORY DATA: Were done; white blood cell count 7.6, hemoglobin 12.8, hematocrit 38.3, platelet count 132,000 improved from 3000 four days prior. Metabolic panel was not done today, it was done yesterday with those values reviewed at previous notes. ASSESSMENT: Immune thrombocytopenia. PLAN: For this patient is as above with followup as per Dr. Sutton. Dom Ross MD
--- NOTE | 2018-08-06 02:10 | CP.PCM.DIS ---
<Remy Hancock - Last Filed: 08/06/18 02:05> Provider - Provider Date of Admission: 08/01/18 15:16 Attending physician: Dom Ross MD Consults: 08/03/18 12:59 Infectious Disease Consult Routine Comment: Consulting Provider: Juve Saul Consulting Physician: Juve Saul Reason for Consult: May have UTI; allergic to ABx, i am trying to figure out which ones Time Spent in preparation of Discharge (in minutes): 45 Hospital Course - Lab Results Lab Results: Micro Results 08/03/18 17:10 Blood Blood Culture - Preliminary NO GROWTH AFTER 48 HOURS 08/03/18 16:48 Blood Blood Culture - Preliminary NO GROWTH AFTER 48 HOURS 08/03/18 15:10 Urine,Clean Catch Urine Culture - Final 10-50,000 CFU/ML. MULTIPLE SPECIES. PROBABLE CONTAMINATION. 08/03/18 17:59 Naris MRSA Culture (Admit) - Final MRSA NOT DETECTED Most Recent Lab Values WBC 7.6 10^3/uL (4.5-11.0) D 08/05/18 10:05 RBC 4.08 10^6/uL (3.5-6.1) 08/05/18 10:05 Hgb 12.8 g/dL (12.0-16.0) 08/05/18 10:05 Hct 38.3 % (36.0-48.0) 08/05/18 10:05 MCV 93.9 fl (80.0-105.0) 08/05/18 10:05 MCH 31.4 pg (25.0-35.0) 08/05/18 10:05 MCHC 33.4 g/dl (31.0-37.0) 08/05/18 10:05 RDW 12.7 % (11.5-14.5) 08/05/18 10:05 Plt Count 132 10^3/uL (120.0-450.0) 08/05/18 10:05 Manual Plt Count 126 K/mm3 (120-450) 08/05/18 10:05 MPV 10.9 fl (7.0-11.0) 08/05/18 10:05 Neut % (Auto) 83.2 % (50.0-68.0) H 08/05/18 10:05 Lymph % (Auto) 13.0 % (22.0-35.0) L 08/05/18 10:05 York % (Auto) 3.8 % (1.0-6.0) 08/05/18 10:05 Eos % (Auto) 0.0 % (1.5-5.0) L 08/05/18 10:05 Baso % (Auto) 0.0 % (0.0-3.0) 08/05/18 10:05 Lymph # (Auto) 1.0 (1.2-3.4) L 08/05/18 10:05 York # (Auto) 0.3 (0.1-0.6) 08/05/18 10:05 Eos # (Auto) 0.0 (0.0-0.7) 08/05/18 10:05 Baso # (Auto) 0.00 K/mm3 (0.0-2.0) 08/05/18 10:05 Absolute Neuts (auto) 6.33 (1.4-6.5) 08/05/18 10:05 Neutrophils % (Manual) 90 % (50.0-70.0) H 08/02/18 13:20 Lymphocytes % (Manual) 4 % (22.0-35.0) L 08/02/18 13:20 Monocytes % (Manual) 6 % (1.0-6.0) 08/02/18 13:20 Platelet Evaluation Low (NORMAL) 08/02/18 13:20 PT 11.0 SECONDS (9.4-12.5) 08/01/18 17:18 INR 0.99 08/01/18 17:18 APTT 25.6 Seconds (26.9-38.3) L 08/01/18 17:18 Sodium 138 mmol/L (132-148) 08/04/18 10:10 Potassium 5.1 mmol/L (3.6-5.0) H 08/04/18 10:10 Chloride 107 mmol/L (98-107) 08/04/18 10:10 Carbon Dioxide 25 mmol/L (21-33) 08/04/18 10:10 Anion Gap 12 (10-20) 08/04/18 10:10 BUN 31 mg/dL (7-21) H 08/04/18 10:10 Creatinine 1.3 mg/dl (0.7-1.2) H 08/04/18 10:10 Est GFR ( Amer) 47 08/04/18 10:10 Est GFR (Non-Af Amer) 39 08/04/18 10:10 Random Glucose 126 mg/dL (70-110) H 08/04/18 10:10 Calcium 9.3 mg/dL (8.4-10.5) 08/04/18 10:10 Total Bilirubin 0.6 mg/dL (0.2-1.3) 08/04/18 10:10 AST 29 U/L (14-36) 08/04/18 10:10 ALT 22 U/L (7-56) 08/04/18 10:10 Alkaline Phosphatase 77 U/L (38-126) 08/04/18 10:10 Total Protein 8.8 g/dL (5.8-8.3) H 08/04/18 10:10 Albumin 3.8 g/dL (3.0-4.8) 08/04/18 10:10 Globulin 5.0 gm/dL 08/04/18 10:10 Albumin/Globulin Ratio 0.8 (1.1-1.8) L 08/04/18 10:10 Procalcitonin < 0.05 NG/ML (0.19-0.49) L 08/03/18 17:13 Urine Color Light yellow (YELLOW) 08/01/18 17:30 Urine Appearance Clear (CLEAR) 08/01/18 17:30 Urine pH 6.0 (4.7-8.0) 08/01/18 17:30 Ur Specific Davenport <= 1.005 (1.005-1.035) 08/01/18 17:30 Urine Protein Negative mg/dL (<30 mg/dL) 08/01/18 17:30 Urine Glucose (UA) Negative mg/dL (NEGATIVE) 08/01/18 17:30 Urine Ketones Negative mg/dL (NEGATIVE) 08/01/18 17:30 Urine Blood Moderate (NEGATIVE) H 08/01/18 17:30 Urine Nitrate Negative (NEGATIVE) 08/01/18 17:30 Urine Bilirubin Negative (NEGATIVE) 08/01/18 17:30 Urine Urobilinogen 0.2 E.U./dL (<1 E.U./dL) 08/01/18 17:30 Ur Leukocyte Esterase Small Aman/uL (NEGATIVE) H 08/01/18 17:30 Urine RBC 0 - 2 /hpf (0-2) 08/01/18 17:30 Urine WBC 1 - 3 /hpf (0-6) 08/01/18 17:30 Ur Epithelial Cells 0 - 2 /hpf (0-5) 08/01/18 17:30 Urine Bacteria Trace /hpf (NONE) 08/01/18 17:30 Blood Type A POSITIVE 08/01/18 19:10 Blood Type Confirm A POSITIVE 08/01/18 19:30 Antibody Screen Negative 08/01/18 19:10 BBK History Checked No verified bt 08/01/18 19:10 - Hospital Course Hospital Course: HPI Day of Admission: 83 F with 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 Sutton's office with palatal petechiae and peripheral bruising; her platelets in the office were found to be 4. Patient was referred to ED for further eval and treatment. On interview, patient denies any complaints. Hospital Course: Patient got 4 total doses (once daily) of Dexamethasone 40, 2 total doses (1gm/kg - 70 gms) of IVIG BID, and 2 U of platelets while in the hospital. We monitored her platelets for several days, at which point we had numerous readings of platelets > 100. Patient was also worked up for UTI as a possible cause for the ITP flare, but was found to be negative for any acute infection. Patient was deemed stable for discharge and was advised to follow up with Dr. Sutton in the office on July. Patient was discharged with the following medications: 1.) Sucralfate BID Discharge Exam - Head Exam Head Exam: ATRAUMATIC, NORMOCEPHALIC - Eye Exam Eye Exam: EOMI, Normal appearance, PERRL Pupil Exam: NORMAL ACCOMODATION - ENT Exam ENT Exam: Normal Oropharynx - Neck Exam Neck exam: Normal Inspection - Respiratory Exam Respiratory Exam: Clear to PA & Lateral, NORMAL BREATHING PATTERN, UNREMARKABLE - Cardiovascular Exam Cardiovascular Exam: REGULAR RHYTHM, RRR, +S1. absent: Diastolic murmur, Rubs, Systolic Murmur - Extremities Exam Extremities exam: full ROM Additional comments: Healing bruises and petechiae - Back Exam Back exam: FULL ROM - Neurological Exam Neurological exam: Alert, CN II-XII Intact, Normal Gait, Oriented x3, Reflexes Normal - Psychiatric Exam Psychiatric exam: Normal Affect, Normal Mood - Skin Skin Exam: Dry, Intact, Normal Color, Warm Discharge Plan - Discharge Medications Prescriptions: Sucralfate [Carafate Oral Susp] 1 gm PO 0600,1600 #20 udc - Follow Up Plan Condition: GOOD Disposition: HOME/ ROUTINE Instructions: Immune Thrombocytopenia (ITP) (DC) Additional Instructions: Please follow up with Dr. Sutton on Wednesday, Aug 09 2018 If you start having any neurological symptoms, if your bruises start getting worse, or you notice any other rashes, please report to the ED immediately If you have any symptoms please return to the ED immediately Referrals: Elías Sutton MD [Staff Provider] - <Elías Sutton - Last Filed: 08/06/18 20:42> Provider - Provider Date of Admission: 08/01/18 15:16 Attending physician: Dom Ross MD Consults: 08/03/18 12:59 Infectious Disease Consult Routine Comment: Consulting Provider: Juve Saul Consulting Physician: Juve Saul Reason for Consult: May have UTI; allergic to ABx, i am trying to figure out which ones Hospital Course - Lab Results Lab Results: Micro Results 08/03/18 16:48 Blood Blood Culture - Preliminary NO GROWTH AFTER 3 DAYS 08/03/18 17:10 Blood Blood Culture - Preliminary NO GROWTH AFTER 3 DAYS 08/03/18 15:10 Urine,Clean Catch Urine Culture - Final 10-50,000 CFU/ML. MULTIPLE SPECIES. PROBABLE CONTAMINATION. 08/03/18 17:59 Naris MRSA Culture (Admit) - Final MRSA NOT DETECTED Most Recent Lab Values WBC 7.6 10^3/uL (4.5-11.0) D 08/05/18 10:05 RBC 4.08 10^6/uL (3.5-6.1) 08/05/18 10:05 Hgb 12.8 g/dL (12.0-16.0) 08/05/18 10:05 Hct 38.3 % (36.0-48.0) 08/05/18 10:05 MCV 93.9 fl (80.0-105.0) 08/05/18 10:05 MCH 31.4 pg (25.0-35.0) 08/05/18 10:05 MCHC 33.4 g/dl (31.0-37.0) 08/05/18 10:05 RDW 12.7 % (11.5-14.5) 08/05/18 10:05 Plt Count 132 10^3/uL (120.0-450.0) 08/05/18 10:05 Manual Plt Count 126 K/mm3 (120-450) 08/05/18 10:05 MPV 10.9 fl (7.0-11.0) 08/05/18 10:05 Neut % (Auto) 83.2 % (50.0-68.0) H 08/05/18 10:05 Lymph % (Auto) 13.0 % (22.0-35.0) L 08/05/18 10:05 York % (Auto) 3.8 % (1.0-6.0) 08/05/18 10:05 Eos % (Auto) 0.0 % (1.5-5.0) L 08/05/18 10:05 Baso % (Auto) 0.0 % (0.0-3.0) 08/05/18 10:05 Lymph # (Auto) 1.0 (1.2-3.4) L 08/05/18 10:05 York # (Auto) 0.3 (0.1-0.6) 08/05/18 10:05 Eos # (Auto) 0.0 (0.0-0.7) 08/05/18 10:05 Baso # (Auto) 0.00 K/mm3 (0.0-2.0) 08/05/18 10:05 Absolute Neuts (auto) 6.33 (1.4-6.5) 08/05/18 10:05 Neutrophils % (Manual) 90 % (50.0-70.0) H 08/02/18 13:20 Lymphocytes % (Manual) 4 % (22.0-35.0) L 08/02/18 13:20 Monocytes % (Manual) 6 % (1.0-6.0) 08/02/18 13:20 Platelet Evaluation Low (NORMAL) 08/02/18 13:20 PT 11.0 SECONDS (9.4-12.5) 08/01/18 17:18 INR 0.99 08/01/18 17:18 APTT 25.6 Seconds (26.9-38.3) L 08/01/18 17:18 Sodium 138 mmol/L (132-148) 08/04/18 10:10 Potassium 5.1 mmol/L (3.6-5.0) H 08/04/18 10:10 Chloride 107 mmol/L (98-107) 08/04/18 10:10 Carbon Dioxide 25 mmol/L (21-33) 08/04/18 10:10 Anion Gap 12 (10-20) 08/04/18 10:10 BUN 31 mg/dL (7-21) H 08/04/18 10:10 Creatinine 1.3 mg/dl (0.7-1.2) H 08/04/18 10:10 Est GFR ( Amer) 47 08/04/18 10:10 Est GFR (Non-Af Amer) 39 08/04/18 10:10 Random Glucose 126 mg/dL (70-110) H 08/04/18 10:10 Calcium 9.3 mg/dL (8.4-10.5) 08/04/18 10:10 Total Bilirubin 0.6 mg/dL (0.2-1.3) 08/04/18 10:10 AST 29 U/L (14-36) 08/04/18 10:10 ALT 22 U/L (7-56) 08/04/18 10:10 Alkaline Phosphatase 77 U/L (38-126) 08/04/18 10:10 Total Protein 8.8 g/dL (5.8-8.3) H 08/04/18 10:10 Albumin 3.8 g/dL (3.0-4.8) 08/04/18 10:10 Globulin 5.0 gm/dL 08/04/18 10:10 Albumin/Globulin Ratio 0.8 (1.1-1.8) L 08/04/18 10:10 Procalcitonin < 0.05 NG/ML (0.19-0.49) L 08/03/18 17:13 Urine Color Light yellow (YELLOW) 08/01/18 17:30 Urine Appearance Clear (CLEAR) 08/01/18 17:30 Urine pH 6.0 (4.7-8.0) 08/01/18 17:30 Ur Specific Davenport <= 1.005 (1.005-1.035) 08/01/18 17:30 Urine Protein Negative mg/dL (<30 mg/dL) 08/01/18 17:30 Urine Glucose (UA) Negative mg/dL (NEGATIVE) 08/01/18 17:30 Urine Ketones Negative mg/dL (NEGATIVE) 08/01/18 17:30 Urine Blood Moderate (NEGATIVE) H 08/01/18 17:30 Urine Nitrate Negative (NEGATIVE) 08/01/18 17:30 Urine Bilirubin Negative (NEGATIVE) 08/01/18 17:30 Urine Urobilinogen 0.2 E.U./dL (<1 E.U./dL) 08/01/18 17:30 Ur Leukocyte Esterase Small Aman/uL (NEGATIVE) H 08/01/18 17:30 Urine RBC 0 - 2 /hpf (0-2) 08/01/18 17:30 Urine WBC 1 - 3 /hpf (0-6) 08/01/18 17:30 Ur Epithelial Cells 0 - 2 /hpf (0-5) 08/01/18 17:30 Urine Bacteria Trace /hpf (NONE) 08/01/18 17:30 Blood Type A POSITIVE 08/01/18 19:10 Blood Type Confirm A POSITIVE 08/01/18 19:30 Antibody Screen Negative 08/01/18 19:10 BBK History Checked No verified bt 08/01/18 19:10 Attending/Attestation - Attestation I have personally seen and examined this patient.: Yes I have fully participated in the care of the patient.: Yes I have reviewed all pertinent clinical information, including history, physical exam and plan: Yes
== END 2018-08-05 14:00 | disposition home or self-care (01) | DRG 813 ==
LOC: ED 13:51 → ERH 15:16 → 3RSO 17:44
PROVIDERS: ADMIT Student in an Organized Health Care Education/Training Program; ATTEND Family Medicine
PROC: 30233S1 Transfusion of Nonautologous Globulin into Peripheral Vein, Percutaneous Approach (ICD-10-PCS; principal; 2018-08-01)
PROC: 30233R1 Transfusion of Nonautologous Platelets into Peripheral Vein, Percutaneous Approach (ICD-10-PCS; 2018-08-02)
DX: D69.3 Immune thrombocytopenic purpura (principal); H91.90 Unspecified hearing loss, unspecified ear; Z97.4 Presence of external hearing-aid; Z86.73 Personal history of transient ischemic attack (TIA), and cerebral infarction without residual deficits

== ENCOUNTER 2018-08-01 14:13 | Outpatient (CLI) | payer BC, MEDICARE | END 2018-08-01 14:14 | disposition home or self-care (01) | LOC: OPLAB 14:13 ==

== ENCOUNTER 2018-08-09 18:06 | Outpatient (CLI) | payer BC, MEDICARE | END 2018-08-09 18:07 | disposition home or self-care (01) | LOC: LAB 18:06 ==